=== PATIENT | female | born 1940 | race Caucasian/White ===

== ENCOUNTER 2020-11-26 19:08 | Emergency (ER) | payer MEDICARE ==
[~2020-11-26 19:08] MED LIST: ALPRAZOLAM 0.50.5 MG PO; ASPIRIN CHEWABL81 MG PO; BIAXIN500 MG PO; BONIVA 150MG T150 MG PO; BUDESONIDE0.5 MG/2 M NEB; CARDURA1 MG PO; COZAAR50 MG PO; LEVAQUIN500 MG PO; METRONIDAZOLE500 MG PO; MICRO-K10 MEQ PO; NORCO 5-325 TA1 EACH PO; PEPCID AC20 MG PO; ZOFRAN4 MG SL
[2020-11-26 19:55] LABS: BASOPHIL 0.7 % (0-2); HCT 44.2 % (37.0-47.0); LYMPHOCYTE 28.2 % (15-48); MCH 29.6 pg (25.0-31.0); MCHC 33.9 g/dL (32.0-36.0); MCV 87.2 fL (78.0-100.0); MONOCYTE 8.4 % (0-12); MPV 10.1 fL (6.0-9.5); NEUTROPHIL 58.4 % (41-80); NRBC 0; PLT 280 K/uL (150-400); RBC 5.07 M/uL (4.20-5.40); WBC 8.9 K/uL (4.0-10.5)
[2020-11-26 20:13] LABS: ALBUMIN 3.6 g/dL (3.4-5.0); BILIRUBIN - TOTAL 0.7 mg/dL (0.2-1.0); BUN/CREAT RATIO (CALC) 16.9 RATIO; CREATININE 0.77 mg/dL (0.51-0.95); POTASSIUM 3.9 mmol/L (3.5-5.1); TOTAL PROTEIN 6.6 g/dL (6.4-8.2)
[2020-11-26] MEDS ORDERED: ONDANSETRON ODT4 MG PO (20:32)
[2020-12-22] MEDS ORDERED: ESCITALOPRAM OXA5 MG PO (13:54)
[2020-12-22] MEDS ORDERED: SYNTHROID50 MCG PO (13:54)
[2020-12-22] MEDS ORDERED: OMEPRAZOLE40 MG PO (13:55)
[2020-12-22] MEDS ORDERED: PROAIR HFA8.5 GM IN (13:56)
[2020-12-22] MEDS ORDERED: INDERAL20 MG PO (13:56)
[2020-12-22] MEDS ORDERED: TRELEGY ELLIPT1 EACH IN (13:57)
[2020-12-22] MEDS ORDERED: CARAFATE1 GM PO (13:57)
[2020-12-22] MEDS ORDERED: VENTOLIN HFA IN18 GM INH (13:58)
== END 2020-11-26 21:17 | disposition home or self-care (01) ==
LOC: FER 19:08
PROVIDERS: Emergency Medicine
DX: K29.50 Unspecified chronic gastritis without bleeding (principal); Z90.49 Acquired absence of other specified parts of digestive tract; Z98.890 Other specified postprocedural states; Z88.0 Allergy status to penicillin; Z88.5 Allergy status to narcotic agent
CPT/HCPCS: 36415; 80053; 82150; 83690; 85025; J2405; J7040

== ENCOUNTER → 2020-12-26 | Day surgery (SDC) | payer MEDICARE ==
[~2020-12-26] MED LIST changes: +CARAFATE1 GM PO; +ESCITALOPRAM OXA5 MG PO; +INDERAL20 MG PO; +OMEPRAZOLE40 MG PO; +ONDANSETRON ODT4 MG PO; +PROAIR HFA8.5 GM IN; +SYNTHROID50 MCG PO; +TRELEGY ELLIPT1 EACH IN; +VENTOLIN HFA IN18 GM INH
== END | disposition home or self-care (01) ==
LOC: FAS 09:34
DX: D12.3 Benign neoplasm of transverse colon (principal); K31.89 Other diseases of stomach and duodenum; K29.50 Unspecified chronic gastritis without bleeding; K58.2 Mixed irritable bowel syndrome; K64.4 Residual hemorrhoidal skin tags; K64.8 Other hemorrhoids; K57.30 Diverticulosis of large intestine without perforation or abscess without bleeding; K21.9 Gastro-esophageal reflux disease without esophagitis; E03.9 Hypothyroidism, unspecified; I10 Essential (primary) hypertension; E78.5 Hyperlipidemia, unspecified; J44.9 Chronic obstructive pulmonary disease, unspecified; G89.29 Other chronic pain; M54.5 Low back pain; G25.0 Essential tremor; M06.9 Rheumatoid arthritis, unspecified; M19.019 Primary osteoarthritis, unspecified shoulder; R63.4 Abnormal weight loss; Z68.1 Body mass index [BMI] 19.9 or less, adult; Z85.038 Personal history of other malignant neoplasm of large intestine; Z87.891 Personal history of nicotine dependence; Z80.0 Family history of malignant neoplasm of digestive organs; Z79.82 Long term (current) use of aspirin; Z79.899 Other long term (current) drug therapy; Z88.0 Allergy status to penicillin; Z88.5 Allergy status to narcotic agent
CPT/HCPCS: 88305; 88342; J1610; J2405; J2704; J7120

== ENCOUNTER 2021-04-13 19:54 | Emergency (ER) | payer MEDICARE | END 2021-04-13 22:45 | disposition home or self-care (01) | LOC: FER 19:54 | DX: M54.2 Cervicalgia (principal); G89.29 Other chronic pain; I10 Essential (primary) hypertension; F03.90 Unspecified dementia, unspecified severity, without behavioral disturbance, psychotic disturbance, mood disturbance, and anxiety; Z98.890 Other specified postprocedural states; Z79.82 Long term (current) use of aspirin; Z79.891 Long term (current) use of opiate analgesic; Z87.891 Personal history of nicotine dependence; Z79.899 Other long term (current) drug therapy | CPT/HCPCS: 99283 ==

== ENCOUNTER 2021-04-15 15:47 | Emergency (ER) | payer MEDICARE ==
[2021-04-15 17:09] LABS: BASOPHIL 0.4 % (0-2); EOSINOPHIL 1.5 % (0-7); HCT 39.5 % (37.0-47.0); HGB 12.8 g/dl (12.5-16.0); LYMPHOCYTE 26.3 % (15-48); MCH 29.3 pg (25.0-31.0); MCHC 32.4 g/dL (32.0-36.0); MCV 90.4 fL (78.0-100.0); MONOCYTE 12.2 % (0-12); MPV 11.3 fL (6.0-9.5); NEUTROPHIL 59.5 % (41-80); NRBC 0; PLT 212 K/uL (150-400); RBC 4.37 M/uL (4.20-5.40); RDW 13.3 % (11.5-14.0)
[2021-04-15 17:14] LABS: INR 1.01 (0.9-1.2); PROTHROMBIN TIME 12.7 SECONDS (11.8-13.4)
[2021-04-15 17:15] LABS: PTT 33.2 SECONDS (24.4-34.7)
[2021-04-15 17:27] LABS: BILIRUBIN NEGATIVE (NEGATIVE); BLOOD NEGATIVE Ery/uL (NEGATIVE); CLARITY CLEAR (CLEAR); COLOR YELLOW (YELLOW); GLUCOSE (U) NORMAL (NORMAL); LEUKOCYTES NEGATIVE Leu/uL (NEGATIVE); NITRITE NEGATIVE (NEGATIVE); PROTEIN NEGATIVE (NEGATIVE); SPECIFIC GRAVITY <=1.005 (1.001-1.030); UROBILINOGEN 0.2 mg/dL (0.2-1.0)
[2021-04-15 17:29] LABS: ALBUMIN 3.1 g/dL (3.4-5.0); BILIRUBIN - TOTAL 0.7 mg/dL (0.2-1.0); BUN/CREAT RATIO (CALC) 14.6 RATIO; CREATININE 0.82 mg/dL (0.51-0.95); GLOBULIN (CALCULATION) 2.9 g/dL; POTASSIUM 4.5 mmol/L (3.5-5.1)
== END 2021-04-15 18:50 | disposition home or self-care (01) ==
LOC: FER 15:47
PROVIDERS: Emergency Medicine
DX: J44.9 Chronic obstructive pulmonary disease, unspecified (principal); G89.29 Other chronic pain; M50.30 Other cervical disc degeneration, unspecified cervical region; I10 Essential (primary) hypertension; Z88.0 Allergy status to penicillin; Z88.5 Allergy status to narcotic agent
CPT/HCPCS: 36415; 36600; 70450; 71045; 72125; 80053; 81003; 82803; 84443; 84484; 85025; 85610; 85730; 93005

== ENCOUNTER → 2022-02-24 | Day surgery (SDC) | payer MEDICARE ==
[~2022-02-24] VITALS: Ht 157.5 cm; Wt 51.7 kg
[~2022-02-24] MED LIST changes: +AMLODIPINE BESY10 MG PO; +VITAMIN B-121000 MC1 PO
[2022-02-24 10:02] LABS: HCT 43.1 % (37.0-47.0); HGB 14.1 g/dl (12.5-16.0); MCH 29.3 pg (25.0-31.0); MCHC 32.7 g/dL (32.0-36.0); MCV 89.6 fL (78.0-100.0); MPV 10.8 fL (6.0-9.5); RBC 4.81 M/uL (4.20-5.40); RDW 13.7 % (11.5-14.0); WBC 7.1 K/uL (4.0-10.5)
[2022-02-24 10:26] LABS: ALBUMIN 3.5 g/dL (3.4-5.0); BILIRUBIN - TOTAL 0.7 mg/dL (0.2-1.0); BUN/CREAT RATIO (CALC) 10.8 RATIO; CREATININE 0.83 mg/dL (0.51-0.95); GLOBULIN (CALCULATION) 3.1 g/dL; POTASSIUM 4.1 mmol/L (3.5-5.1); TOTAL PROTEIN 6.6 g/dL (6.4-8.2)
== END | disposition home or self-care (01) ==
LOC: FAS 02-10 09:30
PROVIDERS: Surgery
DX: K21.9 Gastro-esophageal reflux disease without esophagitis (principal); K29.50 Unspecified chronic gastritis without bleeding; I10 Essential (primary) hypertension; E78.5 Hyperlipidemia, unspecified; J44.9 Chronic obstructive pulmonary disease, unspecified; Z86.010 Personal history of colon polyps; Z87.891 Personal history of nicotine dependence; Z79.82 Long term (current) use of aspirin; Z79.899 Other long term (current) drug therapy; Z88.0 Allergy status to penicillin; Z88.5 Allergy status to narcotic agent; Z90.49 Acquired absence of other specified parts of digestive tract; Z80.0 Family history of malignant neoplasm of digestive organs
CPT/HCPCS: 36415; 80053; J2704; J7120